=== PATIENT | male | born 1960 | race Caucasian/White ===

== ENCOUNTER 2018-04-23 09:55 | Emergency (ER) | payer BC ==
[2018-04-23 10:04] VITALS: BP 148/87; PULSE 55; RESP 16; TEMP 98
[2018-04-23] MEDS ORDERED: PROPARACAINE 0.5% OPHTH DROPS 15 ML BTL RIGHT EYE STA (10:23)
[2018-04-23] MEDS ORDERED: TOBRAMYCIN 0.3% OPHTH DROPS 5 ML BTL RIGHT EYE STA (10:36)
--- NOTE | 2018-04-23 10:43 | ED ---
Eye Problem HPI - General Chief complaint: Eye Problems Stated complaint: foreign body Rt eye Time Seen by Provider: 04/23/18 10:20 Source: patient, RN notes reviewed Mode of arrival: ambulatory Limitations: no limitations - History of Present Illness Initial comments: 58-year-old male presents emergency Department with chief complaint of right eye foreign body. Patient states has been there for last 3 days. Patiently this happened at work. Patient was seen at urgent care and referred here secondary to unable to remove foreign body. Patient states his tetanus is up-to -date. Patient denies any blurred vision. He states that it just gets irritated throughout the day. Patient offers no other complaints. - Related Data Allergies Allergy/AdvReac Type Severity Reaction Status Date / Time No Known Allergies Allergy Verified 04/23/18 10:04 Review of Systems ROS Statement: Those systems with pertinent positive or pertinent negative responses have been documented in the HPI. ROS Other: All systems not noted in ROS Statement are negative. Past Medical History Past Medical History: No Reported History History of Any Multi-Drug Resistant Organisms: None Reported Past Surgical History: Hernia Repair Past Psychological History: No Psychological Hx Reported Smoking Status: Never smoker Past Alcohol Use History: Occasional Past Drug Use History: None Reported General Exam Limitations: no limitations General appearance: alert, in no apparent distress Head exam: Present: atraumatic, normocephalic, normal inspection Eye exam: Present: PERRL, EOMI, conjunctival injection, other (Foreign body in the 7 o'clock position with mild injection). Absent: normal appearance, scleral icterus, periorbital swelling ENT exam: Present: normal exam, normal oropharynx, mucous membranes moist Neck exam: Present: normal inspection. Absent: tenderness, meningismus, lymphadenopathy Respiratory exam: Present: normal lung sounds bilaterally. Absent: respiratory distress, wheezes, rales, rhonchi, stridor Cardiovascular Exam: Present: regular rate, normal rhythm, normal heart sounds. Absent: systolic murmur, diastolic murmur, rubs, gallop, clicks Course Vital Signs 04/23/18 10:02 Temperature 98 F Pulse Rate 55 L Respiratory 16 Rate Blood Pressure 148/87 O2 Sat by Pulse 99 Oximetry Procedures - Procedures Initial comment: 2 drops of proparacaine were used to anesthetize the right eye, complete relief of symptoms, 18-gauge needle was used to remove foreign body, eye was flushed no evidence retained foreign body no rust ring Medical Decision Making - Medical Decision Making 58-year-old male presented for foreign body in the right eye. Foreign body was removed patient was started on Tobrex. Patient will follow-up with ophthalmology on Wednesday., Tetanus is up-to-date. Disposition Clinical Impression: Corneal foreign body Disposition: HOME SELF-CARE Condition: Stable Instructions: Eye Foreign Body (ED) Additional Instructions: Use Tobrex eyedrops 1 drop to right eye every 4 hours for 7 days. Please return to the Emergency Department if symptoms worsen or any other concerns. Is patient prescribed a controlled substance at d/c from ED?: No Referrals: Rylan Holcomb MD [Primary Care Provider] - 1-2 days Johnny Allen MD [STAFF PHYSICIAN] - 1-2 days Time of Disposition: 10:43
== END 2018-04-23 11:15 | disposition home or self-care (01) ==
LOC: EC 09:55
DX: T15.01XA Foreign body in cornea, right eye, initial encounter (principal); Y92.69 Other specified industrial and construction area as the place of occurrence of the external cause; Y99.0 Civilian activity done for income or pay
CPT/HCPCS: 65220; 99283

== ENCOUNTER 2024-10-02 09:42 | Day surgery (SDC) | payer MEDICARE ==
[2024-09-29 10:32] VITALS: BMI 25.8
[2024-10-02] MEDS: IV FLUID CONTINUATION 1,000 ML IV ONE (10:21)
[2024-10-02] MEDS: LACTATED RINGERS 1,000 ML IV SCH (10:30)
[2024-10-02 10:31] VITALS: TEMP 97
[2024-10-02] MEDS ORDERED: LIDOCAINE 2% (PF) 20 MG/ML 5 ML VIAL ONE (10:55)
[2024-10-02] MEDS ORDERED: PROPOFOL 10 MG/ML 20 ML VIAL IV ONE (10:55)
--- NOTE | 2024-10-02 11:14 | P.PCN ---
Date of Procedure: 10/02/24 Preoperative Diagnosis: Screening Postoperative Diagnosis: Diverticulosis Transverse colon polyp Procedure(s) Performed: Colonoscopy with forcep polypectomy Anesthesia: MAC Surgeon: George Jiang Pathology: other (Transverse colon polyp) Condition: stable Disposition: same day Indications for Procedure: 64-year-old male presents today for screening colonoscopy. He states he had polyps at age 48 but has had 2 colonoscopies since without any polyps found. Denies any blood in his stool. Risks, benefits and alternatives were provided to the patient. All questions answered prior to attending the endoscopy suite. Operative Findings: Transverse colon polyp Diverticulosis Description of Procedure: The patient was brought to the endoscopy suite and placed in left lateral decubitus position and adequate sedation was achieved using conscious sedation. Digital rectal exam was performed and mild internal hemorrhoids were palpated. An endoscope was then placed in the rectum and advanced to the cecum as identified by landmarks including the appendiceal orifice and the ileocecal valve. The prep was good. The colonoscope was then slowly withdrawn, examining for any mucosal abnormalities. The cecum, ascending, transverse, descending and sigmoid colon were visualized adequately. There were no large neoplastic lesions noted throughout the colon. Small polyp was then encountered in the transverse colon. This was removed with forcep polypectomy. Hemostasis was noted to be maintained. Diverticulosis was noted scattered throughout the descending and sigmoid colon. Hemostasis was maintained. Retroflexion was performed in the rectum and internal hemorrhoids. Excess air was removed, the colonoscope withdrawn and the procedure terminated. The patient was then transferred to the recovery unit in stable condition. Repeat colonoscopy should be performed in 5 years.
[2024-10-02 11:36] VITALS: BP 156/77; PULSE 50; RESP 16
== END 2024-10-02 11:48 | disposition home or self-care (01) ==
LOC: ORWHC2ENDO 09:42
PROVIDERS: ATTEND Surgery
DX: Z12.11 Encounter for screening for malignant neoplasm of colon (principal); D12.3 Benign neoplasm of transverse colon; K57.30 Diverticulosis of large intestine without perforation or abscess without bleeding; K64.8 Other hemorrhoids
CPT/HCPCS: 88305; 45380; J2704; J2003